=== PATIENT | female | born 2005 | race Caucasian/White ===

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

== ENCOUNTER → 2023-01-02 07:57 | Outpatient (CLI) | payer OTHER, MEDICAID, SELFPAY ==
[2023-01-02 09:27] LABS: Glucose Fasting Gestational 84 mg/dL (76-95)
[2023-01-02 11:14] LABS: Glucose Tol Interp,Gestational INTERPRETATION
[2023-01-02 12:12] LABS: Glucose 3 Hour Gest 89 mg/dL (76-140)
[2023-01-02 12:12] LABS: Glucose 2 Hour Gest 108 mg/dL (76-155)
[2023-01-02 12:20] LABS: Glucose 1 Hour Gest 131 mg/dL (76-180)
== END ==
PROVIDERS: PCP Family Medicine; Referring Provider Nurse Practitioner Obstetrics & Gynecology; Visit Provider Nurse Practitioner Obstetrics & Gynecology
DX: Z34.90 Encounter for supervision of normal pregnancy, unspecified, unspecified trimester (principal); Z13.1 Encounter for screening for diabetes mellitus; Z3A.28 28 weeks gestation of pregnancy
CPT/HCPCS: 36415; 82951; 82952

== ENCOUNTER 2023-01-29 18:10 | Emergency (ER) | payer OTHER, MEDICAID, SELFPAY ==
[2023-01-29 18:13] VITALS: BP 132/81; PULSE 69; RESP 18; TEMP 37.4; O2SAT 98; BMI 34.2
--- NOTE | 2023-01-29 18:28 | ED.PREGNANCY ---
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 Patient states she woke at about 3:00 a.m. in the morning with pain, she states was milder and then became more intense. Patient states it has been persistent. She took Tylenol at 1:00 p.m. today brought it from it 910 to about a 6 or 7/10. Patient has not had fevers or chills. No chest pain, no shortness of breath, no nausea or vomiting. She states normal bowel movements. No dysuria, urgency or frequency. No vaginal bleeding or discharge. Patient denies any swelling in her lower extremities. No hyperreflexia. She states baby has been moving regularly. She has not been noticing a lot of cramping or lower abdominal discomfort. Patient states no prior surgeries. She does have a cyst near her pituitary she established with Dr. Adilia ndiaye at [facility] and had MR eye 2 months ago which showed it was slightly decreased in size. She is on vitamins no other daily medications. No tobacco, alcohol or illicit. Her care is with local colon therapist group. Related Data Previous Rx's Medication Instructions Recorded cephalexin 500 mg capsule 500 mg PO Q6H 7 days #28 caps 01/29/23 Allergies Allergy/AdvReac Type Severity Reaction Status Date / Time No Known Drug Allergies Allergy Verified 01/29/23 18:13 Review of Systems Review of Systems ROS Unobtainable: All systems reviewed & are unremarkable except as noted in HPI and below Exam Narrative Exam Narrative: GENERAL: Alert and oriented x three, female in mild distress. HEENT: Head normocephalic, atraumatic, EOMI, pupils reactive, face symmetric, moist mucous membranes NECK: Supple, full range of motion CARDIOVASCULAR: Regular rate and rhythm without murmurs, rubs or gallops. RESPIRATORY: Breath sounds equal bilaterally, no wheezes rales or rhonchi. ABDOMEN: Soft, nontender. Normoactive bowel sounds all 4 quadrants. No guarding or rebound, rigidity, no mass. Gravid size consistent with dates. : No CVA tenderness EXTREMITIES: Normal range of motion, no clubbing or edema. Neurovascularly intact NEUROLOGICAL: Cranial nerves II through XII grossly intact. Moving all extremities, 2/4 DTRs bilateral lower extremities. No clonus. SKIN: Warm, dry, no petechiae, no rashes or lesions. Initial Vital Signs Initial Vital Signs: Vital Signs Temperature 99.3 F 01/29/23 18:13 Pulse Rate 69 01/29/23 18:13 Respiratory Rate 18 01/29/23 18:13 Blood Pressure 132/81 01/29/23 18:13 Pulse Oximetry 98 01/29/23 18:13 Oxygen Delivery Method Room Air 01/29/23 18:13 Course Orders Ordered: ED Orders 01/29/23 18:22 EKG-12 Lead Stat 01/29/23 18:30 Urine Culture Stat Urine Microscopic Stat 01/29/23 18:42 US OB >= 14 weeks Fetus Stat US abdomen limited Stat 01/29/23 18:45 Complete Blood Count AUTO DIFF Stat Comprehensive Metabolic Panel Stat Lipase Stat PTT Partial Thromboplastin [place] Stat Prothrombin Time INR Stat Discontinued Medications Cefazolin Sodium (Cephalexin 250 Mg Cap Prepack) 1 bottle MISC SEEINSTR ONE Stop: 01/29/23 20:52 Last Admin: 01/29/23 20:59 Dose: 2 tab Documented By: GRANT Sodium Chloride (Normal Saline 0.9%) 1,000 mls @ 1,000 mls/hr IV BOLUS ONE Stop: 01/29/23 19:41 Last Infusion: 01/29/23 19:50 Dose: 0 mls/hr Documented By: Admin: 01/29/23 18:48 Dose: 1,000 mls/hr Documented By: DOMINGA Ondansetron HCl (Ondansetron 4 Mg Odt) 4 mg PO NOW PRN PRN Reason: Nausea And Vomiting Ondansetron HCl (Ondansetron 4 Mg/2 Ml Inj) 4 mg IV NOW PRN PRN Reason: Nausea And Vomiting Vital Signs Vital signs: Vital Signs - 8 hr 01/29/23 18:13 01/29/23 20:55 Temperature 99.3 F Pulse Rate 69 76 Respiratory Rate 18 Blood Pressure 132/81 121/71 Pulse Oximetry 98 99 Oxygen Delivery Method Room Air Room Air MDM - OB/Uterine Contractions Lab Data 01/29/23 18:45 01/29/23 18:45 Labs: Lab Results 01/29/23 01/29/23 01/29/23 Range/Units 18:30 18:45 18:45 WBC 10.7 (4.5-11.0) X10^3/uL RBC 4.35 (4.0-5.2) X10^6/uL Hgb 12.0 (12.0-16.0) g/dL Hct 35.7 L (36-46) % MCV 81.9 (80-100) fL MCH 27.6 (26-34) PG MCHC 33.7 (30-36) % RDW 13.7 (11.6-14.8) % Plt Count 244 (150-400) X10^3/uL Neut % (Auto) 72.7 (50-75) % Lymph % (Auto) 15.7 L (25-40) % [place] % (Auto) 9.7 (3-14) % Eos % (Auto) 1.7 L (2-4) % Baso % (Auto) 0.2 (0-2) % Neut # (Auto) 7800 H (0497-4342) /uL Lymph # (Auto) 1700 (6181-1635) /uL [place] # (Auto) 1000 H (0-900) /uL Eos # (Auto) 200 (0-450) /uL Baso # (Auto) 0 (0-100) /uL PT 11.2 (10.1-12.7) SECONDS INR 1.0 (0.9-1.3) APTT 24 L (26-36) SECONDS Sodium (137-145) mmol/L Potassium (3.4-5.1) mmol/L Chloride (98-107) mmol/L Carbon Dioxide (22-32) mmol/L BUN (7-17) mg/dL Creatinine (0.52-1.04) mg/dL Estimated GFR (>60) mL/min BUN/Creatinine Ratio (6-22) Glucose (70-100) mg/dL Calcium (8.4-10.2) mg/dL Total Bilirubin (0.2-1.3) mg/dL AST (14-36) IU/L ALT (<35) IU/L Alkaline Phosphatase (38-126) U/L Total Protein (6.3-8.2) g/dL Albumin (3.5-5.0) g/dL Globulin (1.7-4.1) g/dL Albumin/Globulin Ratio (1.0-2.8) Lipase (23-300) U/L Urine RBC 0-1/hpf (0-5/HPF) Urine WBC 5-10/hpf H (0-5/HPF) Ur Squamous Epith Cells 5-10 /hpf H (0-5/HPF) Urine Bacteria Few (2-10) H (None) Ur Culture Indicated? Specimen cultured 01/29/23 Range/Units 18:45 WBC (4.5-11.0) X10^3/uL RBC (4.0-5.2) X10^6/uL Hgb (12.0-16.0) g/dL Hct (36-46) % MCV (80-100) fL MCH (26-34) PG MCHC (30-36) % RDW (11.6-14.8) % Plt Count (150-400) X10^3/uL Neut % (Auto) (50-75) % Lymph % (Auto) (25-40) % [place] % (Auto) (3-14) % Eos % (Auto) (2-4) % Baso % (Auto) (0-2) % Neut # (Auto) (1897-5901) /uL Lymph # (Auto) (8960-5818) /uL [place] # (Auto) (0-900) /uL Eos # (Auto) (0-450) /uL Baso # (Auto) (0-100) /uL PT (10.1-12.7) SECONDS INR (0.9-1.3) APTT (26-36) SECONDS Sodium 135 L (137-145) mmol/L Potassium 4.1 (3.4-5.1) mmol/L Chloride 107 (98-107) mmol/L Carbon Dioxide 18 L (22-32) mmol/L BUN 8 (7-17) mg/dL Creatinine 0.39 L (0.52-1.04) mg/dL Estimated GFR > 60 (>60) mL/min BUN/Creatinine Ratio 20.5 (6-22) Glucose 112 H (70-100) mg/dL Calcium 9.3 (8.4-10.2) mg/dL Total Bilirubin 0.1 L (0.2-1.3) mg/dL AST 20 (14-36) IU/L ALT 15 (<35) IU/L Alkaline Phosphatase 106 (38-126) U/L Total Protein 6.8 (6.3-8.2) g/dL Albumin 3.3 L (3.5-5.0) g/dL Globulin 3.5 (1.7-4.1) g/dL Albumin/Globulin Ratio 0.9 L (1.0-2.8) Lipase 163 (23-300) U/L Urine RBC (0-5/HPF) Urine WBC (0-5/HPF) Ur Squamous Epith Cells (0-5/HPF) Urine Bacteria (None) Ur Culture Indicated? Urine Dip Bedside Urine Glucose Negative Bedside Urine Bilirubin - Negative Bedside Urine Ketone - Negative Urine Specific [place] 1.015 Bedside Urine Occult Blood - Negative Bedside Urine pH 6.0 Bedside Urine Protein - Negative Bedside Urine Urobilinogen - Negative Bedside Urine Nitrite - Negative Bedside Urine Leukocytes + 70 Esterase Imaging Data US - OB: Radiologist's Impression: [address] [address] Ultrasound Report Signed Patient: Milagro Jackson MR#: [id number] : 2005 Acct:[id number] Age/Sex: 17 / F Date of Service: 01/29/23 Loc: ED Accession Number: [id number] ?? Procedure: US OB >= 14 weeks Fetus Ordering Provider: Mleissa Zuñiga D.O. PROCEDURE:? US OB >= 14 WEEKS FETUS ? INDICATIONS:? abd pain,ruq ? OUTSIDE/PRIOR DATING DATA:? Last menstrual period (LMP):? 06/11/2022 LMP-based estimated date of delivery (JOSE):? 03/18/2023 First dating scan (date and location):? 11/05/2022 Estimated date of delivery (JOSE) from first dating scan:? 03/19/2023 The calculations are made using the working JOSE of 03/18/2023 ? TECHNIQUE:? Real-time scanning was performed of the fetus, with image documentation.? Endovaginal scanning:? Not performed. ? COMPARISON:? Located Within [facility], US, US OB >= 14 WEEKS FETUS, 11/05/2022, 9:02. ? FINDINGS:? ? General:? A single living intrauterine gestation is present.? Presentation:? Vertex Placenta:? Placental position is anterior, without previa.? Amniotic fluid index:? 12.1 cm, normal range is 5-24 cm.? Single deepest vertical pocket is 5.0 cm. heart rate:? 155 beats per minute.? Maternal cervical canal:? Not well visualized due to head positioning.? Clinically estimated gestational age:? 33 weeks 1 day ? Miscellaneous:? No source of pelvic pain identified. IMPRESSION:? 1. Single live intrauterine . 2. Amniotic fluid index is normal at 12.1 cm. 3. No source of pelvic pain identified.? ? We strive to produce accurate, complete, and clear reports of imaging services. To assist us in improving patient care, this report was composed using standard report templates and voice recognition software. Therefore, it may contain abnormal punctuation, insertions and/or omissions. Occasional wrong-word or sound-alike substitutions may occur. Though we review the report and make efforts to correct it, we do recommend that the report be read carefully in proper context to recognize any text inaccuracies. ? Approved by: Danish Guy M.D. on 01/29/2023 at 20:24? US - abdomen: Radiologist's Impression: [place] [address] Ultrasound Report Signed Patient: Milagro Jackson MR#: [id number] : 2005 Acct:[id number] Age/Sex: 17 / F Date of Service: 01/29/23 Loc: ED Accession Number: [id number] ?? Procedure: US abdomen limited Ordering Provider: Melissa Zuñiga D.O. PROCEDURE: US ABDOMEN LIMITED ? INDICATIONS:? ruq pain ? TECHNIQUE:? Real-time focused scanning was performed of the abdomen, with image documentation.? ? COMPARISON:? None. ? FINDINGS:? Liver liver is normal in size a 16.7 cm and demonstrates normal echogenicity. ? Gallbladder is contracted, most likely secondary to the timing of the most recent meal.? No definite gallstones or pericholecystic fluid. ? No intrahepatic or extrahepatic biliary ductal dilatation.? Common bile duct measures 2 mm in diameter. ? Visualized portions of the pancreas are unremarkable. ? Moderate to severe right-sided hydronephrosis is seen.? There is mild left hydronephrosis.? Bilateral ureteral jets are present. ? IMPRESSION:? 1. Moderate to severe right hydronephrosis and mild left hydronephrosis. 2. Gallbladder is contracted but otherwise unremarkable. ? ? ? Approved by: Danish Guy M.D. on 01/29/2023 at 20:21? ECG Data Attestation: I personally reviewed and interpreted this ECG as follows: Prior ECG tracings: not available for review Interpretation: Sinus rhythm rate of 98 OR 152 QRS 76 QTC 423. No acute ST changes. No prior. MDM Narrative Medical decision making narrative: This is a 17-year-old at approximately 33 weeks female with complaint of right upper quadrant pain that started abruptly this morning she is blood pressure is 132/81, she is not significantly tender on exam she would Tylenol earlier which was helpful. She has not had any vaginal bleeding, discharge or fluid leakage. Patient's blood pressure maximum was 130 she is 120s on recheck. Examination is not consistent with eclampsia or preeclampsia. CBC, coags, CMP shows CO2 18 sodium 135 normal renal function LFTs are appropriate. Patient's urine shows some white cells, squamous epithelial with few bacteria. Negative for proteinuria primary positive for leukocyte esterase. Patient has not had any UTI symptoms, ultrasound shows no acute change on ultrasound, no abruption or placenta change in size appropriate in patient's does have some right hydro no obvious obstruction but with patient's this could be causing some of her symptoms she is more uncomfortable in the front than the posterior but started on antibiotics for potential UTI/pyelo although patient is nontender on my examination on the flank. Gallbladder was contracted but did not show clear signs of infection. Patient was comfortable with this plan and was seen by [facility] for [place] [facility] in department. NST was performed by their L&D and reviewed by colon therapist. Discharge Plan Departure Patient Disposition: Home Clinical Impression: Hydronephrosis of right kidney, UTI (urinary tract infection), Activity Restrictions/Additional Instructions: Your imaging shows some hydronephrosis or enlargement of the right kidney this can sometimes be caused by pressure from the uterus on the ureters. Your urine shows a possible bladder infection, you have been prescribed an antibiotic to take until it is completed. Cultures currently pending and will take 48 hours to result. You may take Tylenol up to a 1000 mg every 6 hours as needed for pain. Take antibiotics until completed. Prescription sent to Please return for fevers, rapidly worsening pain, vomiting, new abdominal back or flank pain, lightheadedness or passing out, new swelling in your extremities, difficulty with urination, vaginal bleeding or discharge, black or bloody stools or other new or concerning changes. Prescriptions: New cephalexin 500 mg capsule 500 mg PO Q6H 7 Days Qty: 28 0RF Referrals: Shiv Baldwin DO [Primary Care Provider] - Stand Alone Forms: Patient Portal/API
--- NOTE | 2023-01-29 18:42 | DI.US.S_ITS ---
PROCEDURE: US OB >= 14 WEEKS FETUS INDICATIONS: abd pain,ruq OUTSIDE/PRIOR DATING DATA: Last menstrual period (LMP): 06/11/2022 LMP-based estimated date of delivery (JOSE): 03/18/2023 First dating scan (date and location): 11/05/2022 Estimated date of delivery (JOSE) from first dating scan: 03/19/2023 The calculations are made using the working JOSE of 03/18/2023 TECHNIQUE: Real-time scanning was performed of the fetus, with image documentation. Endovaginal scanning: Not performed. COMPARISON: [facility], OB >= 14 WEEKS FETUS, 11/05/2022, 9:02. FINDINGS: General: A single living intrauterine gestation is present. Presentation: Vertex Placenta: Placental position is anterior, without previa. Amniotic fluid index: 12.1 cm, normal range is 5-24 cm. Single deepest vertical pocket is 5.0 cm. heart rate: 155 beats per minute. Maternal cervical canal: Not well visualized due to head positioning. Clinically estimated gestational age: 33 weeks 1 day Miscellaneous: No source of pelvic pain identified. IMPRESSION: 1. Single live intrauterine . 2. Amniotic fluid index is normal at 12.1 cm. 3. No source of pelvic pain identified. We strive to produce accurate, complete, and clear reports of imaging services. To assist us in improving patient care, this report was composed using standard report templates and voice recognition software. Therefore, it may contain abnormal punctuation, insertions and/or omissions. Occasional wrong-word or sound-alike substitutions may occur. Though we review the report and make efforts to correct it, we do recommend that the report be read carefully in proper context to recognize any text inaccuracies. Approved by: Danish Guy M.D. on 01/29/2023 at 20:24
--- NOTE | 2023-01-29 18:42 | DI.US.S_ITS ---
PROCEDURE: US ABDOMEN LIMITED INDICATIONS: ruq pain TECHNIQUE: Real-time focused scanning was performed of the abdomen, with image documentation. COMPARISON: None. FINDINGS: Liver liver is normal in size a 16.7 cm and demonstrates normal echogenicity. Gallbladder is contracted, most likely secondary to the timing of the most recent meal. No definite gallstones or pericholecystic fluid. No intrahepatic or extrahepatic biliary ductal dilatation. Common bile duct measures 2 mm in diameter. Visualized portions of the pancreas are unremarkable. Moderate to severe right-sided hydronephrosis is seen. There is mild left hydronephrosis. Bilateral ureteral jets are present. IMPRESSION: 1. Moderate to severe right hydronephrosis and mild left hydronephrosis. 2. Gallbladder is contracted but otherwise unremarkable. Approved by: Danish Guy M.D. on 01/29/2023 at 20:21
[2023-01-29] MEDS: SODIUM CHLORIDE 0.9% 1,000 ML 1000 ML IV (18:48)
[2023-01-29 19:01] LABS: Add Manual Diff / Slide Review NO; Basophils Absolute Auto 0 /uL (0-100); Basophils Percent Auto 0.2 % (0-2); Eosinophils Absolute Auto 200 /uL (0-450); Eosinophils Percent Auto 1.7 % (2-4); Hematocrit 35.7 % (36-46); Lymphocytes Absolute Auto 1700 /uL (1100-4500); Lymphocytes Percent Auto 15.7 % (25-40); Mean Corpuscular HGB Conc 33.7 % (30-36); Mean Corpuscular Hemoglobin 27.6 PG (26-34); Mean Corpuscular Volume 81.9 fL (80-100); Monocytes Absolute Auto 1000 /uL (0-900); Monocytes Percent Auto 9.7 % (3-14); Neutrophils Absolute Auto 7800 /uL (1500-7000); Neutrophils Percent Auto 72.7 % (50-75); Platelet Count 244 X10^3/uL (150-400); Red Blood Cell Count 4.35 X10^6/uL (4.0-5.2); Red Cell Distribution Width 13.7 % (11.6-14.8); White Blood Cell Count 10.7 X10^3/uL (4.5-11.0)
[2023-01-29 19:04] LABS: Prothrombin Time 11.2 SECONDS (10.1-12.7)
[2023-01-29 19:06] LABS: PTT Partial Thromboplastin Tim 24 SECONDS (26-36)
[2023-01-29 19:10] LABS: Alanine Aminotransferase 15 IU/L (<35); Albumin 3.3 g/dL (3.5-5.0); Albumin Globulin Ratio 0.9 (1.0-2.8); Alkaline Phosphatase 106 U/L (38-126); Aspartate Aminotransferase 20 IU/L (14-36); BUN Creatinine Ratio 20.5 (6-22); Bilirubin Total 0.1 mg/dL (0.2-1.3); Blood Urea Nitrogen 8 mg/dL (7-17); Calcium 9.3 mg/dL (8.4-10.2); Carbon Dioxide 18 mmol/L (22-32); Chloride 107 mmol/L (98-107); Estimated Glomerular Filt Rate > 60 mL/min (>60); Globulin 3.5 g/dL (1.7-4.1); Glucose 112 mg/dL (70-100); HEMOLYSIS < 15 (0-50); Lipase 163 U/L (23-300); Potassium 4.1 mmol/L (3.4-5.1); Sodium 135 mmol/L (137-145); Total Protein 6.8 g/dL (6.3-8.2)
[2023-01-29 19:13] LABS: RBC Urine 0-1/HPF (0-5/HPF)
[2023-01-29 19:14] LABS: Bacteria Urine Few (2-10); Culture Indicated Urine Specimen Cultured; Squamous Epithelial Cell Urine 5-10 /HPF (0-5/HPF); WBC Urine 5-10/HPF (0-5/HPF)
[2023-01-29 20:55] VITALS: BP 121/71; PULSE 76; O2SAT 99
[2023-01-29] MEDS: cephALEXin 250 MG CAP PREPACK 1 BOTTLE MISC (20:59)
--- NOTE | 2023-01-30 12:21 | PM.PROC.1 ---
Procedures Date/Time Date of procedure: 01/29/23 Time of procedure: 17:00 General Procedure description: CNM in L&D awaiting patient for evaluation. Patient was checked into ER and is undergoing evaluation. CNM notified ER physician that patient is 33wks and ER physician felt comfortable evaluating and treating patient for her RUQ pain in the context of normotensive BP. CNM ordered and reviewed NST which was reactive.
== END 2023-01-29 20:55 | disposition home or self-care (01) ==
PROVIDERS: Emergency Provider Emergency Medicine; PCP Family Medicine
DX: O23.43 Unspecified infection of urinary tract in pregnancy, third trimester (principal); O99.891 Other specified diseases and conditions complicating pregnancy; N13.30 Unspecified hydronephrosis; Z3A.33 33 weeks gestation of pregnancy
CPT/HCPCS: 36415; 76705; 76811; 80053; 81003; 81015; 83690; 85025; 85610; 85730; 87086; 93005; 93010; 99284

== ENCOUNTER → 2023-02-11 06:48 | Outpatient (CLI) | payer OTHER, MEDICAID, SELFPAY ==
--- NOTE | 2023-02-11 06:49 | DI.US.S_ITS ---
PROCEDURE: US OB FOLLOW UP INDICATIONS: GROWTH AND TIFFANY OUTSIDE/PRIOR DATING DATA: Last menstrual period (LMP): 06/11/2022. LMP-based estimated date of delivery (JOSE): 03/18/2023. First dating scan (date and location): 11/05/2022. Estimated date of delivery (JOSE) from first dating scan: 03/19/2023. The calculations are made using the clinical JOSE of 03/18/2023. TECHNIQUE: Real-time scanning was performed of the fetus, with image documentation. COMPARISON: [facility], , OB >= 14 WEEKS FETUS, 01/29/2023, 19:12. FINDINGS: A single living intrauterine gestation is present. Presentation: Vertex. Placenta: Placental position is anterior, without previa. Amniotic fluid index: 10.8 cm, normal range is 5-24 cm. Single deepest vertical pocket is 4.5 cm. heart rate: 145 beats per minute. Maternal cervical canal: Not well seen. Biometric measurements: BPD: 8.8 cm, 35 weeks 5 days, 71st percentile HC: 33.3 cm, 38 weeks 0 days, 87th percentile AC: 32.1 cm, 36 weeks 0 days, 83rd percentile FL: 7.1 cm, 36 weeks 3 days, 78th percentile Clinically estimated gestational age: 35 weeks 0 days Estimated gestational age from today's scan: 36 weeks 4 days Estimated weight: 2897 g, 82 percentile No gross abnormality. IMPRESSION: 1. [place] living intrauterine at 36 weeks 4 days based on today's ultrasound. Fetus is in the 82 percentile for weight. 2. Normal placenta and amniotic fluid. Dictated by: Alistair Boggs M.D. on 02/11/2023 at 8:56 Approved by: Alistair Boggs M.D. on 02/11/2023 at 9:04
== END ==
PROVIDERS: PCP Family Medicine; Referring Provider Advanced Practice Midwife; Visit Provider Advanced Practice Midwife
DX: O26.843 Uterine size-date discrepancy, third trimester (principal); Z3A.36 36 weeks gestation of pregnancy
CPT/HCPCS: 76816

== ENCOUNTER 2023-03-21 00:42 | Inpatient (IN) | payer OTHER, MEDICAID, SELFPAY ==
[2023-03-21] VITALS (7 sets, daily range): BP systolic 134–144; BP diastolic 70–86; PULSE 115–128; RESP 18–21; TEMP 36.2–36.5; O2SAT 98–99
--- NOTE | 2023-03-21 01:12 | PM.OBHP.1 ---
OB HPI Date/Time Date of admission: 03/21/23 Date Patient Seen: 03/21/23 Time Patient Seen: 01:12 History of Present Condition Chief complaint: OB CHeck : 1 Para: 0 Estimated Date of Delivery: 03/18/23 Estimated Gestational Age (weeks): 40.3 Narrative: Milagro Toledo is a 17 year old female @ 40wks 3 days by LMP and 11 wk US who presents for evaluation of labor. Contractions started midday and have steadily progressed in frequency and intensity with loss of mucus plug in the afternoon. Coping well, breathing through strong contractions every 2-3 mnutes. +FM. No leaking of fluid. care w/ CNM complicated by stable pituitary ademona (dx at age 12) and excessive weight gain (79lbs) with 36wk growth US EFW in the 82nd%. Planning an epidural. Accompanied by her mother and grandmother. History of Present care: initiated at week # (11), number of visits (12) and pounds weight gain (79) Dating criteria: LMP confirmed by 1st trimester US Ultrasounds: normal mid trimester US Obstetrical complications: none Medical complications: none Preadmission Labs Blood type: A (+) positive -: Antibody screen: negative, GBS status: positive, HBsAG: negative, HIV: negative, HSV 1: positive, HSV 2: positive and RPR/VDLR: negative -: Chlamydia screen: not detected and Gonorrhea screen: not detected -: Rubella: not immune and Varicella: not immune HCT: 35.2 Cell-free DNA: Negative 1 hr GTT: 149 3 hr GTT: 1 hr (131), 2 hr (108) and 3 hr (89) Fasting blood glucose: 84 Evaluation Evaluation Baseline heart rate: 135 Variability: Moderate (11-25) monitor accelerations: Present Monitor Decelerations: Absent Contraction Frequency (minutes): 2 Uterine Contraction Intensity: Strong/Firm Status: Category l Dilation (cm): 6 Effacement (%): 90 Dilation: >/=5 cm Effacement: >/=80% station: -2 Position of cervix: posterior Consistency: soft Macario score: 9 PFS Medical History (Updated 03/21/23 @ 01:38 by Miracle Nava CNM) HSV (herpes simplex virus) anogenital infection Pituitary adenoma Social History (Updated 03/21/23 @ 01:39 by Miracle Nava CNM) marital status: unmarried,single household members: family lives independently: Yes housing: house education level: high school Smoking Status: Never smoker Meds Home Medications and Allergies Home Medications Medication Instructions Recorded Confirmed Type valacyclovir 500 mg tablet mg 03/21/23 03/21/23 History Allergies Allergy/AdvReac Type Severity Reaction Status Date / Time No Known Drug Allergies Allergy Verified 01/29/23 18:13 Review of Systems Review of Systems ROS: Yes All systems reviewed with the patient and are negative except as otherwise documented OB Exam Vital signs Blood Pressure: 134/84 Pulse Rate: 115 Temperature: 97.2 F Resp Effort & Inspection: normal respiratory effort and able to speak in complete sentences Auscultation: clear to auscultation bilaterally Cardio Rate: regular rate Rhythm: regular rhythm Heart Sounds: S1 normal and S2 normal Presentation: vertex Objective Labs 03/21/23 01:15 Assessment and Plan Assessment and Plan Assessment and Plan narrative: A: Term [place] Active labor GBS prophylaxis indicated Cat I FHR P: Admit, routine orders with ampicillin loading dose now. Epidural when requested. Expectant management of labor. Reassess in 4 hours or sooner, PRN.
[2023-03-21] MEDS: AMPICILLIN 2,000 MG in SODIUM CHLORIDE 0.9% 100 ML 200 MG IV (01:40)
[2023-03-21] MEDS: LACTATED RINGERS 1,000 ML 100 ML IV ×2 (01:54→23:16)
--- NOTE | 2023-03-21 01:59 | PM.AN.REGBLK ---
Regional Block Pre-procedure Procedure: Continuous Lumbar Epidural for L&D Attending OB provider: Miracle Nava PMH/ROS narrative: term labor, SROM, no complications. PMH pituitary adenoma, stable (age approx 12), 80lb weight gain. ASA Class: II Medications: Current Medications Generic Name Dose Route Start Last Admin Trade Name Freq PRN Reason Stop Dose Admin Calcium Carbonate 1,000 mg 03/21/23 01:10 Calcium Carbonate 500 Mg Tab PO Q4HR PRN Dyspepsia Carboprost Tromethamine 250 mcg 03/21/23 01:10 Carboprost 250 Mcg/Ml Ampul IM Q90M PRN Bleeding Fentanyl 100 mcg 03/21/23 01:10 Fentanyl 100 Mcg/2 Ml Inj IV Q1H PRN Pain, Severe (7-10) Oxytocin/Lactated Ringer's 30 unit in 500 mls @ 200 mls/hr 03/21/23 01:10 Oxytocin Premix IV CONT PRN Bleeding Protocol Tranexamic Acid 1,000 mg/ 100 mls @ 200 mls/hr 03/21/23 01:10 Sodium Chloride IV NOW PRN Bleeding Lactated Ringer's 1,000 mls @ 100 mls/hr 03/21/23 01:15 03/21/23 01:54 Lactated Ringers IV 100 mls/hr CONT DESTINI Administration Lidocaine HCl 20 ml 03/21/23 01:10 Lidocaine 1% 20 Ml INJ INTRA-OP PRN Post Delivery Methylergonovine Maleate 0.2 mg 03/21/23 01:10 Methylergonovine 0.2 Mg Tablet PO Q6HR PRN Heavy Bleeding Methylergonovine Maleate 0.2 mg 03/21/23 01:10 Methylergonovine 0.2 Mg/Ml Vial IM NOW PRN Bleeding Misoprostol 800 mcg 03/21/23 01:10 Misoprostol 200 Mcg Tablet MA NOW PRN Bleeding Misoprostol 400 mcg 03/21/23 01:10 Misoprostol 200 Mcg Tablet SL NOW PRN Bleeding Naloxone HCl 0.2 mg 03/21/23 01:10 Naloxone 0.4 Mg/Ml Vial IV Q2MIN PRN Opiate Reversal Ondansetron HCl 4 mg 03/21/23 01:10 Ondansetron 4 Mg/2 Ml Inj IV Q4HR PRN Nausea And Vomiting Oxytocin 10 unit 03/21/23 01:10 Oxytocin 10 Unit/Ml Vial IM NOW PRN Bleeding Allergies: Allergies Allergy/AdvReac Type Severity Reaction Status Date / Time No Known Drug Allergies Allergy Verified 01/29/23 18:13 Procedure Insertion date: 03/21/23 Insertion time: 20:16 Prep/Local: betadine x3 and 1% lidocaine Interspace: L3-4 Patient position: sitting Needle: 18 gauge Hustead (CSE:27g Pencan through Hustead, clear CSF, 2.5mg MPF bupiv) Loss of resistance with: saline LISANDRO at (cm): 5 Catheter placed at SKIN (cm): 11 Catheter in SPACE (cm): 6 Insertion: No CSF, No Blood, No Paresthesia with insertion, No Paresthesia with injection and No Test dose reaction Initial Medications TEST DOSE time: 02:19 TEST DOSE: 1.5% lidocaine with epinephrine 1:200k (mL): 3 BOLUS DOSE time: 02:25 BOLUS DOSE (mL): 4 BOLUS DOSE med: other (infusate) Infusion INFUSION: 0.125% bupivacaine and with fentanyl 2 mcg/mL Initial rate (mL/hr): 8 Subsequent interventions: PCEA 05/22 0940 5mL clinician bolus, increased rate to 10/5 0955 5mL 2% chloroprocaine 1340 5mL 2% chloroprocaine 14:30 50mcg fentanyl epidural, 5mL bolus infusate 14:40 5mL 2% lidocaine 14:56 5mL 2% lidocaine, improved To CSection 16:08 Post-procedure Anesthesia time START: 02:05 Anesthesia time END: 16:08 Post-procedure Anesthesia Assessment: Yes CV function: HR/BP stable, Yes Resp function: RR/sat/airway adequate, Yes Post-op hydration adequate, Yes Pain control adequate, Yes Nausea & vomiting absent, Yes Temperature > 36 C, Yes Mental status appropriate and No Anesthesia complications
[2023-03-21 02:07] LABS: Add Manual Diff / Slide Review NO; Basophils Absolute Auto 300 /uL (0-100); Basophils Percent Auto 2.8 % (0-2); Eosinophils Absolute Auto 100 /uL (0-450); Eosinophils Percent Auto 1.2 % (2-4); Hematocrit 34.1 % (36-46); Hemoglobin 11.5 g/dL (12.0-16.0); Lymphocytes Absolute Auto 1800 /uL (1100-4500); Lymphocytes Percent Auto 16.8 % (25-40); Mean Corpuscular HGB Conc 33.7 % (30-36); Mean Corpuscular Hemoglobin 26.9 PG (26-34); Mean Corpuscular Volume 79.8 fL (80-100); Monocytes Absolute Auto 900 /uL (0-900); Monocytes Percent Auto 8.6 % (3-14); Neutrophils Absolute Auto 7500 /uL (1500-7000); Neutrophils Percent Auto 70.6 % (50-75); Platelet Count 237 X10^3/uL (150-400); Red Blood Cell Count 4.27 X10^6/uL (4.0-5.2); Red Cell Distribution Width 16.2 % (11.6-14.8); White Blood Cell Count 10.7 X10^3/uL (4.5-11.0)
[2023-03-21] MEDS: FENT 2MCG/ML BUPIV 0.125% EPI 200 MCG/100 ML PLAST..BAG 6 MCG EPIDURAL (02:35)
[2023-03-21] MEDS: AMPICILLIN 1,000 MG in SODIUM CHLORIDE 0.9% 100 ML 200 MG IV ×3 (05:36→13:32)
--- NOTE | 2023-03-21 06:10 | PM.OBPNLAB ---
Date/Time Date Patient Seen: 03/21/23 Time Patient Seen: 06:10 Pain Control Pain control: epidural (has been able to sleep) Comments: Resting comfortably. Denies rectal pressure. VS: BP 99/54mmHg, HR 98bpm, T98.6F Oral Pelvic Exam Dilation (cm): 8 Effacement (%): 100 station: -1 Amniotic membrane status: Bulging Contractions Contractions on admission: regular Monitor mode: External Pitocin rate (mU/min): 0 Contraction frequency (min): 2 Contraction duration (min): 1 Contraction pattern: Regular Contraction intensity: Strong/Firm Status status: Category l Heart Rate Baseline: 130 Monitor Accelerations: Present Monitor Decelerations: Absent Monitor Variability: Moderate Assessment and Plan Assessment: active labor Plan: continuous present management Comments: Continue expectant management of labor. Encouarage frequent position changes. Reassess in 4 hours or JOSAFAT deckerN.
--- NOTE | 2023-03-21 10:50 | PM.OBPNLAB ---
Date/Time Date Patient Seen: 03/21/23 Time Patient Seen: 10:00 Pain Control Pain control: epidural Comments: Was able to sleep, but now having pain in her LLQ and working with anesthesia for relief. VS: 129/78mmHg, HR 108bpm, T 36.3C Temporal Pelvic Exam Dilation (cm): 9 Effacement (%): 100 station: -1 Amniotic membrane status: Bulging Comments: Minimal descent noted since admission OA presentation Contractions Monitor mode: External Contraction frequency (min): 2 Contraction pattern: Regular Contraction intensity: Strong/Firm Status status: Category l Heart Rate Baseline: 125 Monitor Accelerations: Present Monitor Decelerations: Absent Monitor Variability: Moderate Assessment and Plan Assessment: active labor Plan: continuous present management Comments: Notified [facility] OB/ of anticipated LGA . Anticipate second stage soon. Reassess in 4 hours or sooner, PRN.
--- NOTE | 2023-03-21 13:44 | PM.OBPNLAB ---
Date/Time Date Patient Seen: 03/21/23 Time Patient Seen: 13:45 Pain Control Pain control: epidural Comments: Currently coping well with adequate epidural anesthesia, though she is aware of her Argueta catheter and able to feel cervical exams. Pelvic Exam Dilation (cm): 9 Effacement (%): 100 station: -1 Amniotic membrane status: Leaking Comments: Cervix palpated on left and anterior AROM for clear fluid was performed at 1100 Contractions Monitor mode: External Contraction frequency (min): 2 Contraction pattern: Regular Contraction intensity: Moderate Status status: Category l Heart Rate Baseline: 135 Monitor Accelerations: Present Monitor Decelerations: Absent Monitor Variability: Moderate Assessment and Plan Assessment: active labor Plan: continuous present management Comments: Recommend left exaggerated yoo and then peanut ball. Reassess in 2 hours and if no change will place an IUPC and start pitocin, if indicated.
--- NOTE | 2023-03-21 14:55 | PM.OBPNLAB ---
Date/Time Date Patient Seen: 03/21/23 Time Patient Seen: 14:55 Pain Control Pain control: epidural (inadequate) Comments: Working with anesthesia to achieve adequate pain relief. VS: BP 133/75mmHg, HR 104bpm, T 36.3C Temporal Pelvic Exam Dilation (cm): 9 Effacement (%): 100 station: -1 Amniotic membrane status: Leaking Comments: IUPC placed at 1435 Contractions Monitor mode: External Pitocin rate (mU/min): 0 Contraction frequency (min): 2 Contraction pattern: Regular Contraction intensity: Moderate Intrauterine tone measurement: 275 Status status: Category l Heart Rate Baseline: 145 Monitor Accelerations: Present Monitor Decelerations: Absent Monitor Variability: Moderate Assessment and Plan Assessment: active labor and other (Arrest of active phase) Plan: Comments: Consulted [facility]/ for primary cesarea, non-urgent. Notified /Anesthesia. RN to notify OR crew.
--- NOTE | 2023-03-21 15:37 | P.CONS_ITS ---
History of Present Illness Consult details Date Patient Seen: 03/21/23 Time Patient Seen: 15:38 Chief complaint: OB CHeck Reason for consult: Stage 1 arrest of labor Requesting provider: Miracle Nava Narrative: Patient is a 17-year-old 1 para 0 at 40-,3/7 weeks gestation. Consult due to stage I arrest of labor. She presented in active labor and was 6 cm dilated. She progressed over several hours to 9 cm. She has not changed past 9 cm. An intrauterine pressure catheter was placed with [place] units at 275. She has an epidural for pain management. Membranes were ruptured. She has clear amniotic fluid. Group B strep positive. Received 4 doses of antibiotics. Meds Home Medications and Allergies Home Medications Medication Instructions Recorded Confirmed Type valacyclovir 500 mg tablet 500 mg 2XD 03/21/23 03/21/23 History Allergies Allergy/AdvReac Type Severity Reaction Status Date / Time No Known Drug Allergies Allergy Verified 01/29/23 18:13 Exam Narrative Exam Narrative: Generally: Patient lying on her left side, mildly uncomfortable with cont ractions. Fundal height: 42 cm Estimated weight: 9 lb Vaginal exam: 9 cm. Head at -1 station. Evaluation of tracing: Baseline heart rate 140s. Presence of accelerations. No decelerations. Moderate [id number] variability. Contractions every 2-3 minutes. [place] units 275. Objective Labs 03/21/23 01:15 Labs: Laboratory Results - last 24 hr 03/21/23 03/21/23 01:15 01:15 WBC 10.7 RBC 4.27 Hgb 11.5 L Hct 34.1 L MCV 79.8 L MCH 26.9 MCHC 33.7 RDW 16.2 H Plt Count 237 Neut % (Auto) 70.6 Lymph % (Auto) 16.8 L [place] % (Auto) 8.6 Eos % (Auto) 1.2 L Baso % (Auto) 2.8 H Neut # (Auto) 7500 H Lymph # (Auto) 1800 [place] # (Auto) 900 Eos # (Auto) 100 Baso # (Auto) 300 H Blood Type A Positive Antibody Screen Negative [facility] Medical History (Updated 03/21/23 @ 01:38 by Miracle Nava CNM) HSV (herpes simplex virus) anogenital infection Pituitary adenoma Social History marital status: unmarried,single household members: family lives independently: Yes housing: house education level: high school Tobacco & Substance Use Smoking Status: Never smoker Assessment & Plan Assessment & Plan narrative: Assessment: 17-year-old 1 para 0 at 40-,3/7 weeks gestation with a stage I arrest of labor despite adequate contractions with intrauterine pressure catheter Plan: Primary low-transverse section The risks, benefits, and alternatives to the procedure were explained to the patient. The risks including bleeding, infection, injury to the bowel, bladder, or ureters. She understands these risks and agrees to proceed. A full par Q was held and consent form was signed. Time Spent With Patient Time with patient: less than 30 minutes
--- NOTE | 2023-03-21 15:37 | PM.OBPNLAB ---
Date/Time Date Patient Seen: 03/21/23 Time Patient Seen: 15:37 Pelvic Exam Effacement (%): 100 station: -1 Amniotic membrane status: Leaking Contractions Monitor mode: External Contraction frequency (min): 2 Contraction pattern: Regular Contraction intensity: Moderate Intrauterine tone measurement: 275 Status status: Category l
--- NOTE | 2023-03-21 15:56 | PM.PREOP ---
Pre-operative Note COVID-19 Criteria for continued procedure: Non-surgical alternatives not available or appropriate per current SOC Interval Note History & Physical reviewed/Exam performed by Physician: Yes Changes to H&P: No H&P completed within 30 days and has changed as indicated here:: 03/21/23
[2023-03-21] MEDS: CEFAZOLIN 2 GM/100 ML PREMIX 100 ML IV (16:22)
--- NOTE | 2023-03-21 16:37 | SUR.OPER ---
Supine on padded OR bed, head on pillow, arms secured on padded arm boards at <90 degrees abduction, legs uncrossed, safety belt at thigh, tape over blanket over lower legs.
[2023-03-21] MEDS: AZITHROMYCIN 500 MG in DEXTROSE 5% IN WATER 250 ML 250 MG IV (16:53)
[2023-03-21] MEDS: ACETAMINOPHEN IV 1,000 MG/100 ML VIAL 400 MG IV (16:57)
--- NOTE | 2023-03-21 17:30 | P.PCN_ITS ---
Procedures Date/Time Date of procedure: 03/21/23 Time of procedure: 16:41 General Procedure description: Failure Analysis Technician Documentation I assisted the OB market relationship manager in the section for this patient. My responsibilities included retracting and suctioning, providing fundal pressure during delivery and following with suture during closure. Please see the OB's note for details of the surgery.
--- NOTE | 2023-03-21 17:40 | PM.OBCS.1 ---
Operative Date/Time/Diagnoses Date of procedure: 03/21/23 Time of procedure: 17:40 Pre-op diagnosis: 40-3/7 weeks gestation Stage I arrest of labor Post-op diagnosis: same Procedure & Clinicians Procedure: Primary low-transverse section Same procedure as scheduled: Yes Indications: 40-,3/7 weeks gestation Stage I arrest of labor Surgeon: Nichole Lundberg Yes if Unassisted: No Forging Dies Final Finisher: Miracle Nava Reason for Forging Dies Final Finisher: The anesthetic assistant was necessary to retract upon entry into the abdomen and uterus. She assisted with delivery of the with fundal pressure. She assisted with closure of the uterus and abdomen with retraction and clipping of suture. Anesthesia Type: Spinal (with Duramorph) Operative Notes Findings: Live female infant in the left occiput posterior presentation Normal uterus, tubes, and ovaries Cord pH arterial: 6.975 Cord pH venous: 7.042 Closure Type: primary Specimen(s): cord blood, cord pH and placenta Intraoperative meds administered: Duramorph, Ketorolac and Pitocin Applied: Catheter (To continuous drainage) Estimated Blood Loss (mL): 600 Blood products transfused: none Procedure in detail: The patient was taken to the operating room where she was placed in the seated position. Spinal anesthesia with Duramorph was administered. She was then placed in the dorsal supine position with a leftward tilt. She was prepped and draped in the usual sterile fashion. A timeout was performed. After spinal analgesia was found to be adequate, a Pfannenstiel skin incision was made 2 fingerbreadths above the pubic symphysis and carried through to the underlying layer fascia. The fascia was nicked in the midline, and the incision extended bilaterally with the Warren scissors. The superior aspect of the fascial incision was grasped with a [place] clamps, elevated, and the underlying rectus muscles dissected off sharply and bluntly. Attention was then turned to the inferior aspect of this incision which in a similar fashion was grasped with a [place] clamps, elevated, and the underlying rectus muscles dissected off sharply and bluntly. The rectus muscles were in the midline. The peritoneum was identified, grasped between 2 hemostats, and entered sharply with the Metzenbaum scissors. This incision was extended superiorly and inferiorly with good visualization of the bladder. The bladder blade was inserted. The vesicouterine peritoneum was identified, grasped with the pickup, and entered sharply with the Metzenbaum scissors. This incision was extended bilaterally, and the bladder flap was created digitally. The bladder blade was reinserted. The lower uterine segment was incised in a transverse fashion with the scalpel. Upon entering the amniotic sac there was a small amount of clear amniotic fluid. The nose and mouth were suctioned with bulb suction. The remainder of the body delivered without difficulty. The cord was double clamped and cut. The was handed off to waiting RN and RT. a piece of cord for cord pH was obtained. Cord bloods were obtained. Pitocin was given in the IV fluids. The placenta was delivered manually. The uterus was cleared of all clots and debris. The uterine incision was repaired with #1 chromic in a running interlocking fashion, and a second layer the same suture was used for an imbricating layer. Hemostasis was achieved. The tubes and ovaries were examined and were found to be normal. The gutters were cleared of all clots and debris. The bladder flap was reapproximated using 2-0 Vicryl in a running fashion. The parietal peritoneum was closed using 2-0 Vicryl in a running fashion. The fascia was reapproximated using 0 Vicryl in a running fashion. The subcutaneous layer was copiously irrigated with warm normal saline. 5 simple interrupted sutures of 3-0 Vicryl were placed to reapproximate the subcutaneous layer. The skin was closed with 4-0 Monocryl in a subcuticular fashion. Steri-Strips were placed. An Aquacel dressing was placed. The uterus was expressed of a small amount of old blood. Sponge, lap, and instrument counts were correct x-2. The patient tolerated the procedure well, and was taken to PACU in stable condition. Complications: none Baby 1: Infant Gender: Female Position: Left Occiput Posterior Placental Delivery Description: Manual Removal Cord Vessel Description: 3 Vessels score (1 min): 7 score (5 min): 7 weight: 8 lb 12 oz Post-operative Condition: stable Disposition: PACU Aftercare: routine postop
[2023-03-21] MEDS: OXYCODONE IR 5 MG TABLET PO (17:46)
--- NOTE | 2023-03-21 17:46 | SUR.PHASEI ---
verbal order Dr. Dougherty 10 mg oxycodone hcl PO
[2023-03-21] MEDS: ACETAMINOPHEN 325 MG TABLET 650 MG PO (21:38)
[2023-03-21] MEDS: OXYCODONE IR 10 MG TABLET PO (22:13)
[2023-03-21] MEDS: KETOROLAC 30 MG/ML VIAL IV (23:12)
[2023-03-22] MEDS: ACETAMINOPHEN 325 MG TABLET 650 MG PO ×4 (02:51→20:36)
[2023-03-22] MEDS: KETOROLAC 30 MG/ML VIAL IV ×2 (05:15→12:35)
[2023-03-22 06:55] LABS: Hematocrit 25.7 % (36-46); Hemoglobin 8.6 g/dL (12.0-16.0)
[2023-03-22] MEDS: PRENATAL VIT,CALC/IRON/FOLIC 1 TABLET 1 TAB PO (09:55)
[2023-03-22] MEDS: DOCUSATE 100 MG CAPSULE PO (09:56)
--- NOTE | 2023-03-22 17:16 | PM.OBPN.1 ---
Subjective - OB Subjective Patient comments: no complaints, pain well controlled and tolerating diet baby status: doing well feeding status: exclusively breast feeding Date Patient Seen: 03/22/23 Time Patient Seen: 17:16 Interval history: Postop day # 1 status post primary low-transverse section Argueta catheter is out she is voiding without the catheter. Pain is well controlled with ibuprofen and Tylenol. She is tolerating a diet. She is ambulating independently. is going okay. Exam Vital Signs (past 8 hours): Oxygen Delivery Method Room Air Narrative Exam Narrative: Generally: Patient is sitting up in bed, eating, no acute distress Fundus: Firm at U -1 Incision: Clean dry and intact with Aquacel dressing Extremities: 1+ edema, negative Homans Objective Labs 03/22/23 06:33 Labs: Laboratory Results - last 24 hr 03/22/23 06:33 Hgb 8.6 L Hct 25.7 L Assessment & Plan Plan day: 1 plan OB: routine postop care Comments: Anticipate discharge March 23, 2023 Time Spent With Patient Time: Total time spent is greater than 50% in coordination of care (as documented) at patient's floor/unit and/or counseling patient: Time with patient: less than 15 minutes
[2023-03-22] MEDS: IBUPROFEN 600 MG TABLET PO (20:36)
[2023-03-22] MEDS: OXYCODONE IR 10 MG TABLET PO (20:57)
[2023-03-23] MEDS: ACETAMINOPHEN 325 MG TABLET 650 MG PO ×2 (04:43→11:17)
[2023-03-23] MEDS: IBUPROFEN 600 MG TABLET PO ×2 (04:44→11:16)
[2023-03-23] MEDS: OXYCODONE IR 10 MG TABLET PO (05:51)
[2023-03-23] MEDS: PRENATAL VIT,CALC/IRON/FOLIC 1 TABLET 1 TAB PO (09:28)
[2023-03-23] MEDS: DOCUSATE 100 MG CAPSULE PO (09:28)
--- NOTE | 2023-03-30 20:26 | PM.OBDS.1 ---
Discharge Providers Provider Date of admission: 03/21/23 00:42 Discharge Date: 03/23/23 Primary care physician: Shiv Nolan Rai, DO Consults: 03/21/23 21:28 Consult to Manufacturing Technology Analyst Routine Comment: Discharge provider: Nichole Dougherty MD Summary Hospital Course Date Patient Seen: 03/23/23 Time Patient Seen: 09:30 Diagnoses: 40-3/7 weeks gestation Stage I arrest of labor Primary low-transverse section Hospital Course: Patient is a 18-year-old 1 para 1 who presented on March 21, 2023 at 40-,3/7 weeks gestation in labor. She progressed to 9 cm, but then no change past 9 cm for 6 hours. Adequacy of contractions was assessed with intrauterine pressure catheter. She underwent a primary low-transverse section for a stage I arrest of labor. Her postoperative course was unremarkable. She was discharged home on postop day # 2, March 23, 2023. She was tolerating a diet. No nausea or vomiting. Bleeding was minimal. She was ambulating independently. She was voiding without the catheter. And her pain was well controlled. Peripartum Data Infant Delivery Method: Section Procedures: Epidural analgesia Intrauterine pressure catheter Primary low-transverse section complications: none 1: Gender: Female Disposition of : home Status at Discharge Cognitive/behavioral status at discharge: oriented Functional status at discharge: independent ambulation Overall status at discharge: patient is progressing back to baseline Time Spent with Patient Time attestation: Total time spent providing and/or coordinating discharge services: Time spent: Less than 30 minutes Objective Labs 03/22/23 06:33 Exam Vital Signs (past 8 hours): Oxygen Delivery Method Room Air Narrative Exam Narrative: Generally: Patient is sitting up in bed, no acute distress Lungs: Clear to auscultation bilaterally Cardiovascular: Regular rate and rhythm Fundus: Firm at U -1 Incision: Clean dry and intact with Aquacel dressing Extremities: 1+ edema, negative Homans Discharge Plan Discharge Plan Patient Disposition: Home Provider Discharge Comment: Call with fever, chills, or redness or drainage around the incision Call with bleeding more than a pad in an hour Ibuprofen 600 mg every 6 hours as needed for pain Tylenol 650 mg every 6 hours as needed for pain Oxycodone every 4 hours as needed Stool softener until bowel has returned to normal Discharge orders & Medications Prescriptions: New oxycodone 5 mg tablet 5 mg PO Q4H PRN (Reason: pain) Qty: 20 0RF ibuprofen 600 mg tablet 600 mg PO QID PRN (Reason: cramping) Qty: 30 0RF docusate sodium [Colace] 100 mg capsule 100 mg PO DAILY Qty: 20 0RF Discontinued valacyclovir 500 mg tablet 500 mg 2XD Patient Comments: take 1 tablet by mouth twice a day for DURATION OF Follow up/Referrals: Deanna Rose, HEBER, TITLE SEARCHER [Advanced Cable Puller] - 03/28/23 9:30 am (Follow-up with pneumatic tester on March 28, 2023 for Aquacel dressing and stitch removal) Diet/Activity/Treatments Diet: Regular Activity: No heavy lifting, nothing more than the baby for the first 2 weeks Skin/Wound/Dressing Care Report to your healthcare provider any signs of infection, such as:: chills, fever, increased pain, unusual drainage and unusual redness Dressing: Do not remove dressing Visit Report/Discharge Packet Instructions: DI for , DI for Prescription Opioid Use Stand Alone Forms: Patient Portal/API, Stroke Signs & Symptoms Discharge Data Primary Care Provider: Shiv Baldwin Discharges patient from system. Discharge Date/Time: 03/23/23 17:35
== END 2023-03-23 17:35 | disposition home or self-care (01) | DRG 540 ==
PROVIDERS: Nurse Practitioner Obstetrics & Gynecology; Obstetrics & Gynecology; Admitting Provider Advanced Practice Midwife; PCP Family Medicine; Referring Provider Advanced Practice Midwife; Visit Provider Advanced Practice Midwife
PROC: 10D00Z1 Extraction of Products of Conception, Low, Open Approach (ICD-10-PCS; CPT 59514; principal; 2023-03-21 16:15)
DX: O62.1 Secondary uterine inertia (principal); Z3A.40 40 weeks gestation of pregnancy; Z37.0 Single live birth; O99.824 Streptococcus B carrier state complicating childbirth; O98.52 Other viral diseases complicating childbirth; B00.9 Herpesviral infection, unspecified; O99.892 Other specified diseases and conditions complicating childbirth
CPT/HCPCS: 36415; 59514; 85014; 85018; 85025; 86850; 86900; 86901; 99232; G0379; J0131; J0290; J0690; J1885; J2250; J2274; J2590; J2704; J3010

== ENCOUNTER 2023-08-15 14:46 | Emergency (ER) | payer OTHER, MEDICAID, SELFPAY ==
[2023-08-15 14:49] VITALS: BP 121/85; PULSE 87; RESP 16; TEMP 36.6; O2SAT 99; BMI 28.3
[2023-08-15 15:30] LABS: Add Manual Diff / Slide Review NO; Basophils Absolute Auto 100 /uL (0-100); Basophils Percent Auto 0.7 % (0-2); Eosinophils Absolute Auto 200 /uL (0-450); Eosinophils Percent Auto 2.9 % (2-4); Hematocrit 42.4 % (36-46); Hemoglobin 14.2 g/dL (12.0-16.0); Lymphocytes Absolute Auto 2700 /uL (1100-4500); Lymphocytes Percent Auto 37.5 % (25-40); Mean Corpuscular HGB Conc 33.5 % (30-36); Mean Corpuscular Hemoglobin 27.3 PG (26-34); Mean Corpuscular Volume 81.5 fL (80-100); Monocytes Absolute Auto 600 /uL (0-900); Monocytes Percent Auto 7.8 % (3-14); Neutrophils Absolute Auto 3700 /uL (1500-7000); Neutrophils Percent Auto 51.1 % (50-75); Platelet Count 268 X10^3/uL (150-400); Red Blood Cell Count 5.21 X10^6/uL (4.0-5.2); Red Cell Distribution Width 16.3 % (11.6-14.8); White Blood Cell Count 7.3 X10^3/uL (4.5-11.0)
--- NOTE | 2023-08-15 15:37 | PC.NURSE ---
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 Baby sleeps well at night. Pt has allowed blood work, declined to give urine and declined an IV.
[2023-08-15 15:41] LABS: Alanine Aminotransferase 15 IU/L (<35); Albumin 4.9 g/dL (3.5-5.0); Albumin Globulin Ratio 1.4 (1.0-2.8); Alkaline Phosphatase 60 U/L (38-126); Aspartate Aminotransferase 19 IU/L (14-36); BUN Creatinine Ratio 27.4 (6-22); Bilirubin Total 0.4 mg/dL (0.2-1.3); Blood Urea Nitrogen 17 mg/dL (7-17); Carbon Dioxide 24 mmol/L (22-32); Chloride 105 mmol/L (98-107); Estimated Glomerular Filt Rate > 60 mL/min (>60); Globulin 3.4 g/dL (1.7-4.1); Glucose 96 mg/dL (70-100); HEMOLYSIS 22 (0-50); Potassium 4.1 mmol/L (3.4-5.1); Sodium 139 mmol/L (137-145); Total Protein 8.3 g/dL (6.3-8.2)
--- NOTE | 2023-08-15 18:20 | ED.GENADULT ---
HPI - General Adult General Chief complaint: Dizziness Stated complaint: Feeling dizzy, vision blanking, tired Time Seen by Provider: 08/15/23 17:59 Source: patient Mode of arrival: Ambulatory History of Present Illness HPI narrative: Patient is a 18-year-old female. She states that this morning she woke up. When she was looking in the mirror she stated that she felt very lightheaded and dizzy. She sat down in her symptoms seemed to improved and then when she bent over and stood back up again the symptoms return. They have now completely resolved. At the time she was not having chest pain or headache. No palpitations. She states that she also has a known pituitary tumor. Patient states that she does not know any specific diagnosis of this. States she went to see an wildlife technician and got ?no information? she did have a MRI when she was which showed that the tumor was smaller. She does not have a primary care doctor. She denies any headaches. No vision problems. No lateralizing neurologic symptoms. Related Data Previous Rx's Medication Instructions Recorded docusate sodium 100 mg capsule 100 mg PO DAILY #20 caps 03/23/23 (Colace) ibuprofen 600 mg tablet 600 mg PO QID PRN cramping #30 tabs 03/23/23 oxycodone 5 mg tablet 5 mg PO Q4H PRN pain #20 tabs 03/23/23 Allergies Allergy/AdvReac Type Severity Reaction Status Date / Time No Known Drug Allergies Allergy Verified 01/29/23 18:13 Review of Systems Review of Systems ROS Unobtainable: All systems reviewed & are unremarkable except as noted in HPI and below Patient History Medical History HSV (herpes simplex virus) anogenital infection Pituitary adenoma Social History marital status: unmarried,single household members: family lives independently: Yes housing: house education level: high school Smoking Status: Never smoker Smoking Status: Never smoker Substance Use Type: does not use Exam Initial Vital Signs Initial Vital Signs: Vital Signs Temperature 97.9 F 08/15/23 14:49 Pulse Rate 87 08/15/23 14:49 Respiratory Rate 16 08/15/23 14:49 Blood Pressure 121/85 08/15/23 14:49 Pulse Oximetry 99 08/15/23 14:49 Oxygen Delivery Method Room Air 08/15/23 14:49 Const General: cooperative, comfortable and No ill appearing HENMT Head: normal to inspection and normocephalic Resp Effort & Inspection: normal respiratory effort Auscultation: clear to auscultation bilaterally Cardio Rate: regular rate Rhythm: regular rhythm GI Inspection: normal to inspection and non-distended Palpation: soft and No tender Skin General: no rashes or lesions noted Neuro General: patient alert, patient awake, patient oriented x3 and moves all extremities Cranial Nerves: CN's II-XI intact bilaterally Cognition: normal cognition Speech: speech normal Gait: normal gait Motor: muscle tone normal throughout Sensory Exam: no sensory deficits noted Extrem General: normal to inspection and capillary refill normal Course Orders Ordered: ED Orders 08/15/23 18:20 Consult to [facility] - Food And Beverage Attendant Stat Vital Signs Vital signs: Vital Signs - 8 hr 08/15/23 14:49 Temperature 97.9 F Pulse Rate 87 Respiratory Rate 16 Blood Pressure 121/85 Pulse Oximetry 99 Oxygen Delivery Method Room Air Medical Decision Making Lab Data Lab results reviewed: Yes I reviewed the patient's lab results. 08/15/23 15:20 08/15/23 15:20 Labs: Lab Results 08/15/23 Range/Units 15:20 WBC 7.3 (4.5-11.0) X10^3/uL RBC 5.21 H (4.0-5.2) X10^6/uL Hgb 14.2 (12.0-16.0) g/dL Hct 42.4 (36-46) % MCV 81.5 (80-100) fL MCH 27.3 (26-34) PG MCHC 33.5 (30-36) % RDW 16.3 H (11.6-14.8) % Plt Count 268 (150-400) X10^3/uL Neut % (Auto) 51.1 (50-75) % Lymph % (Auto) 37.5 (25-40) % [place] % (Auto) 7.8 (3-14) % Eos % (Auto) 2.9 (2-4) % Baso % (Auto) 0.7 (0-2) % Neut # (Auto) 3700 (7388-1598) /uL Lymph # (Auto) 2700 (7414-7190) /uL [place] # (Auto) 600 (0-900) /uL Eos # (Auto) 200 (0-450) /uL Baso # (Auto) 100 (0-100) /uL Sodium 139 (137-145) mmol/L Potassium 4.1 (3.4-5.1) mmol/L Chloride 105 (98-107) mmol/L Carbon Dioxide 24 (22-32) mmol/L BUN 17 (7-17) mg/dL Creatinine 0.62 (0.52-1.04) mg/dL Estimated GFR > 60 (>60) mL/min BUN/Creatinine Ratio 27.4 H (6-22) Glucose 96 (70-100) mg/dL Calcium 10.0 (8.4-10.2) mg/dL Total Bilirubin 0.4 (0.2-1.3) mg/dL AST 19 (14-36) IU/L ALT 15 (<35) IU/L Alkaline Phosphatase 60 (38-126) U/L Total Protein 8.3 H (6.3-8.2) g/dL Albumin 4.9 (3.5-5.0) g/dL Globulin 3.4 (1.7-4.1) g/dL Albumin/Globulin Ratio 1.4 (1.0-2.8) MDM Narrative Medical decision making narrative: Patient is currently asymptomatic. The symptoms that brought her in the emergency department today where this morning and they are now completely resolved. She also has quite a few other vague symptoms to include fatigue and problems sleeping at night. This is most likely related to fatigue of taking care of her 5-month-old child. She states that the child's father is not in the picture. She does live with her mother however she states that her mother provides little support and helping her. Patient does not have a primary care doctor. Given the fact that she now is completely asymptomatic there was no indication for emergent evaluation of this pituitary ?tumor? I advised the patient that if in fact she does have a tumor on her pituitary that she needs to make contact with the primary care doctor as this absolutely needs follow-up and further evaluation. She was given a card with information on it so that she can make contact with the primary doctor. Will discharge patient return precautions. Discharge Plan Departure Patient Disposition: Home Clinical Impression: Dizziness Instructions: DI for Dizziness-Nonvertigo Activity Restrictions/Additional Instructions: Recommend you continue to take all your medications as directed. Use the card that you were given here in the emergency department to make contact with the primary doctor as you should have further evaluation of the pituitary abnormality that you brought up here in the ER. Return to the emergency department for new symptoms. Prescriptions: No Action oxycodone 5 mg tablet 5 mg PO Q4H PRN (Reason: pain) Qty: 20 0RF ibuprofen 600 mg tablet 600 mg PO QID PRN (Reason: cramping) Qty: 30 0RF docusate sodium [Colace] 100 mg capsule 100 mg PO DAILY Qty: 20 0RF Referrals: Shiv Baldwin DO [Primary Care Provider] - Stand Alone Forms: Patient Portal/API
== END 2023-08-15 18:28 | disposition home or self-care (01) ==
PROVIDERS: Emergency Medicine; Emergency Provider Emergency Medicine; PCP Family Medicine
DX: R42 Dizziness and giddiness (principal)
CPT/HCPCS: 80053; 85025; 99281; 99283

== ENCOUNTER 2023-09-19 21:59 | Emergency (ER) | payer OTHER, MEDICAID, SELFPAY ==
[2023-09-19 22:10] VITALS: BP 119/86; PULSE 70; RESP 17; TEMP 37; O2SAT 96; BMI 27.4
--- NOTE | 2023-09-19 22:21 | ED.HA ---
HPI - Headache General Chief Complaint: Headache Stated Complaint: migraine T-0/ HX of brain tumor/ nausea Time Seen by Provider: 09/19/23 22:12 Mode of arrival: Ambulatory History of Present Illness HPI Narrative: Patient is a 18-year-old female with history of headaches and pituitary tumor presenting today with 2 days of a worsening headache. She reports that when she was her headaches went away however she started having headaches again. Mild nausea, no vomiting sensitive to light. No numbness tingling or weakness. No fevers. Related Data Previous Rx's Medication Instructions Recorded docusate sodium 100 mg capsule 100 mg PO DAILY #20 caps 03/23/23 (Colace) ibuprofen 600 mg tablet 600 mg PO QID PRN cramping #30 tabs 03/23/23 oxycodone 5 mg tablet 5 mg PO Q4H PRN pain #20 tabs 03/23/23 Allergies Allergy/AdvReac Type Severity Reaction Status Date / Time No Known Drug Allergies Allergy Verified 09/19/23 22:14 Review of Systems Review of Systems ROS Unobtainable: All systems reviewed & are unremarkable except as noted in HPI and below Patient History Medical History HSV (herpes simplex virus) anogenital infection Pituitary adenoma Social History marital status: unmarried,single household members: family lives independently: Yes housing: house education level: high school Smoking Status: Never smoker Smoking Status: Never smoker alcohol intake frequency: other Substance Use Type: does not use Exam Initial Vital Signs Initial Vital Signs: Vital Signs Temperature 98.6 F 09/19/23 22:10 Pulse Rate 70 09/19/23 22:10 Respiratory Rate 17 09/19/23 22:10 Blood Pressure 119/86 09/19/23 22:10 Pulse Oximetry 96 09/19/23 22:10 Oxygen Delivery Method Room Air 09/19/23 22:10 GENERAL: Alert 18-year-old female in dark room, espino over eyes appears uncomfortable HEENT: Head atraumatic,EOMI, pupils reactive, face symmetric, moist mucous membranes CARDIOVASCULAR: Regular rate and rhythm without murmurs, rubs or gallops. RESPIRATORY: Breath sounds equal bilaterally, no wheezes rales or rhonchi. ABDOMEN: Soft, nontender. Normoactive bowel sounds all 4 quadrants. No guarding or rebound. EXTREMITIES: Normal range of motion, no clubbing or edema. Neurovascularly intact NEUROLOGICAL: Alert and oriented x4.Normal gait and speech. Cranial nerves II through XII grossly intact. SKIN: Warm, dry, no laceration, no petechiae, no rashes or lesions. Course Orders Ordered: ED Orders 09/19/23 22:26 CT head/brain wo con Stat Discontinued Medications Ketorolac Tromethamine (Ketorolac 30 Mg/Ml Vial) 15 mg IV NOW ONE Stop: 09/19/23 22:27 Last Admin: 09/19/23 22:37 Dose: 15 mg Documented By: SB Vital Signs Vital signs: Vital Signs - 8 hr 09/19/23 22:10 09/20/23 00:01 Temperature 98.6 F 98.3 F Pulse Rate 70 70 Respiratory Rate 17 16 Blood Pressure 119/86 116/72 Pulse Oximetry 96 99 Oxygen Delivery Method Room Air Room Air MDM - Headache Imaging Data CT scan - head: Radiologist's Impression: PROCEDURE: CT HEAD/BRAIN WO CON INDICATIONS: known pituitary tumor, meraz TECHNIQUE: Noncontrast 4.5 mm thick angled axial sections acquired from the foramen magnum to the vertex, with coronal and sagittal reformats. For radiation dose reduction, the following was used: automated exposure control, adjustment of mA and/or kV according to patient size. COMPARISON: Outside Facility, RG, MRI BRAIN W/WO CONTRAST, 09/25/2018, 17:57. FINDINGS: Image quality: Excellent. CSF spaces: Basal cisterns are patent. No extra-axial fluid collections. Ventricles are normal in size and shape. Brain: No midline shift. No significant intracranial masses, or hemorrhage. At the pituitary fossa of the pituitary gland appears slightly enlarged greater on the left than the right Godfrey-white matter interface is normal. Skull and face: Calvarium and visualized facial bones are intact, without suspicious lesions. Sinuses: Visualized sinuses and mastoids are clear. IMPRESSION: Minimal abnormal enlargement of the left pituitary gland, no source of headache is identified. No suspicion for presence of intracranial hemorrhage. Dictated by: Benny Gama M.D. on 09/19/2023 at 23:16 MDM Narrative Medical decision making narrative: 18-year-old female history of pituitary tumor presents today with headache. She improved with Toradol. CT head does not show any significant mass but does show an abnormality that is not miserable on left pituitary. At this time she is feeling better recommended following up with PCP possibly getting repeat MRI. However I do not think that the pituitary tumor is causing her headache today. Does seem to be hormonal, she had headaches before headaches resolved with and now they have returned. She is no focal deficits. No concern for infection Discharge Plan Departure Patient Disposition: Home Clinical Impression: Headache Instructions: DI for Headache Activity Restrictions/Additional Instructions: *You have been diagnosed with headache *What to do: At this time CT is shows pituitary abnormality but not very large. May require repeat MRI. Please see your primary care provider. *Continue to take medications as directed Tylenol Motrin as needed for pain *Follow up with your primary care provider in 2-3 days or call [phone] *Return to ER if you should have worsening headache persistent vomiting weakness numbness tingling or any new, worsening or concerning symptoms Prescriptions: No Action oxycodone 5 mg tablet 5 mg PO Q4H PRN (Reason: pain) Qty: 20 0RF ibuprofen 600 mg tablet 600 mg PO QID PRN (Reason: cramping) Qty: 30 0RF docusate sodium [Colace] 100 mg capsule 100 mg PO DAILY Qty: 20 0RF Referrals: Shiv Baldwin DO [Primary Care Provider] - Stand Alone Forms: Patient Portal/API
--- NOTE | 2023-09-19 22:26 | DI.CT.S_ITS ---
PROCEDURE: CT HEAD/BRAIN WO CON INDICATIONS: known pituitary tumor, meraz TECHNIQUE: Noncontrast 4.5 mm thick angled axial sections acquired from the foramen magnum to the vertex, with coronal and sagittal reformats. For radiation dose reduction, the following was used: automated exposure control, adjustment of mA and/or kV according to patient size. COMPARISON: Outside Facility, RG, MRI BRAIN W/WO CONTRAST, 09/25/2018, 17:57. FINDINGS: Image quality: Excellent. CSF spaces: Basal cisterns are patent. No extra-axial fluid collections. Ventricles are normal in size and shape. Brain: No midline shift. No significant intracranial masses, or hemorrhage. At the pituitary fossa of the pituitary gland appears slightly enlarged greater on the left than the right Godfrey-white matter interface is normal. Skull and face: Calvarium and visualized facial bones are intact, without suspicious lesions. Sinuses: Visualized sinuses and mastoids are clear. IMPRESSION: Minimal abnormal enlargement of the left pituitary gland, no source of headache is identified. No suspicion for presence of intracranial hemorrhage. Dictated by: Benny Gama M.D. on 09/19/2023 at 23:16 Approved by: Benny Gama M.D. on 09/19/2023 at 23:19
[2023-09-19] MEDS: KETOROLAC 30 MG/ML VIAL 15 MG IV (22:37)
[2023-09-20 00:01] VITALS: BP 116/72; PULSE 70; RESP 16; TEMP 36.8; O2SAT 99
== END 2023-09-20 00:03 | disposition home or self-care (01) ==
PROVIDERS: Emergency Provider Emergency Medicine; PCP Family Medicine
DX: R51.9 Headache, unspecified (principal)
CPT/HCPCS: 70450; 96374; 99283; 99284; J1885

== ENCOUNTER 2024-10-30 12:49 | Emergency (ER) | payer OTHER, SELFPAY ==
[2024-10-30 13:20] VITALS: BP 128/75; PULSE 89; RESP 16; TEMP 36.9; O2SAT 98; BMI 26.6
--- NOTE | 2024-10-30 14:54 | ED_ITS ---
HPI - Headache <YULISSA Pozo Last Filed: 10/30/24 16:12> General Chief Complaint: Headache Stated Complaint: headache t-1, throwing up Time Seen by Provider: 10/30/24 14:25 Mode of arrival: Family Vehicle History of Present Illness HPI Narrative: Milagro is a pleasant 19-year-old female with a past medical history of pituitary tumor not currently following with PCP or Endocrinology presents to the emergency department for headache since last night. She is with her mom who contributes to the history. Patient reports she gets headaches over twice a month. States that last night she developed 1 of her regular headaches which she describes as pressure on the top of her head. States this headache was an 8 and is now around a 5 however it is not going away despite taking Tylenol and ibuprofen yesterday. States that this headache is different than normal because she has had about 5 episodes total of nausea and vomiting, twice last night and 3 this morning. She feels dehydrated. Denies fevers, chills, flu symptoms, cough, shortness of breath, sore throat. No abdominal pain or diarrhea. She has taken no medications today. Of note, her mom states that yesterday the patient started her menstrual period and she finds that her symptoms get worse every month with her menstrual cycle. She currently is , 19 months . Related Data Previous Rx's Medication Instructions Recorded docusate sodium 100 mg capsule 100 mg PO DAILY #20 caps 03/23/23 (Colace) ibuprofen 600 mg tablet 600 mg PO QID PRN cramping #30 tabs 03/23/23 oxycodone 5 mg tablet 5 mg PO Q4H PRN pain #20 tabs 03/23/23 naproxen 500 mg tablet 500 mg PO BID PRN pain #14 tabs 10/30/24 ondansetron 4 mg disintegrating 4 mg PO Q8H PRN nausea and 10/30/24 tablet vomiting #14 tabs Allergies Allergy/AdvReac Type Severity Reaction Status Date / Time No Known Drug Allergies Allergy Verified 09/19/23 22:14 Review of Systems <Cathleen Mahoney PA-C - Last Filed: 10/30/24 16:12> Review of Systems ROS Unobtainable: All systems reviewed & are unremarkable except as noted in HPI and below Patient History <YULISSA Pozo Last Filed: 10/30/24 16:12> Medical History HSV (herpes simplex virus) anogenital infection Pituitary adenoma Social History marital status: unmarried,single household members: family lives independently: Yes housing: house education level: high school Smoking Status: Never smoker Smoking Status: Never smoker alcohol intake frequency: other Exam <Cathleen Mahoney PA-C - Last Filed: 10/30/24 16:12> Narrative Exam Narrative: GENERAL: 19 year old patient appears stated age. Well-developed patient, in no acute distress. HEAD: Atraumatic. Normocephalic. EYES: PERRL. Extraocular motions intact. No scleral icterus. No injection or drainage. ENT: Nose without bleeding, purulent drainage. Throat without erythema, tonsillar hypertrophy or exudate. Airway patent. NECK: Trachea midline. Cervical ROM intact. CARDIOVASCULAR: Regular rate and rhythm. RESPIRATORY: ?Nonlabored respirations. ?Speaking in clear, full sentences. ?Clear to auscultation. GASTROINTESTINAL: Abdomen soft, non-tender, nondistended. Normal bowel sounds. EXTREMITIES: No edema or joint tenderness. NEURO: AOx3. ?Clear speech. ?Moves all 4 extremities appropriately. Sensation intact to light touch throughout all extremities. No facial asymmetry. Sensation intact to light touch bilateral face. Normal [id number], rapid alternating movements, heel-qiu. Gross hearing intact bilaterally. Equal strength throughout. SKIN: No rash or erythema of visible areas Initial Vital Signs Initial Vital Signs: Vital Signs Temperature 98.5 F 10/30/24 13:20 Pulse Rate 89 10/30/24 13:20 Respiratory Rate 16 10/30/24 13:20 Blood Pressure 128/75 10/30/24 13:20 Pulse Oximetry 98 10/30/24 13:20 Oxygen Delivery Method Room Air 10/30/24 13:20 <Katherine Marinelli MD - Last Filed: 11/01/24 07:31> Initial Vital Signs Initial Vital Signs: Vital Signs Temperature 98.5 F 10/30/24 13:20 Pulse Rate 89 10/30/24 13:20 Respiratory Rate 16 10/30/24 13:20 Blood Pressure 128/75 10/30/24 13:20 Pulse Oximetry 98 10/30/24 13:20 Oxygen Delivery Method Room Air 10/30/24 13:20 Course <Cathleen Mahoney PA-C - Last Filed: 10/30/24 16:12> Orders Ordered: Discontinued Medications Diphenhydramine HCl (Diphenhydramine 50 Mg/Ml Vial) 25 mg IV NOW ONE Stop: 10/30/24 14:54 Last Admin: 10/30/24 15:06 Dose: 25 mg Documented By: SPF Sodium Chloride (Normal Saline 0.9%) 1,000 mls @ 1,000 mls/hr IV BOLUS ONE Stop: 10/30/24 15:52 Last Infusion: 10/30/24 16:33 Dose: Infused Documented By: Admin: 10/30/24 15:09 Dose: 1,000 mls/hr Documented By: SPF Metoclopramide HCl (Metoclopramide 10 Mg/2 Ml Inj) 10 mg IV NOW ONE Stop: 10/30/24 14:54 Last Admin: 10/30/24 15:07 Dose: 10 mg Documented By: SPF Vital Signs Vital signs: Vital Signs - 8 hr 10/30/24 13:20 Temperature 98.5 F Pulse Rate 89 Respiratory Rate 16 Blood Pressure 128/75 Pulse Oximetry 98 Oxygen Delivery Method Room Air <Katherine Marinelli MD - Last Filed: 11/01/24 07:31> Orders Ordered: Discontinued Medications Diphenhydramine HCl (Diphenhydramine 50 Mg/Ml Vial) 25 mg IV NOW ONE Stop: 10/30/24 14:54 Last Admin: 10/30/24 15:06 Dose: 25 mg Documented By: SPF Sodium Chloride (Normal Saline 0.9%) 1,000 mls @ 1,000 mls/hr IV BOLUS ONE Stop: 10/30/24 15:52 Last Infusion: 10/30/24 16:33 Dose: Infused Documented By: Admin: 10/30/24 15:09 Dose: 1,000 mls/hr Documented By: SPF Metoclopramide HCl (Metoclopramide 10 Mg/2 Ml Inj) 10 mg IV NOW ONE Stop: 10/30/24 14:54 Last Admin: 10/30/24 15:07 Dose: 10 mg Documented By: SPF Vital Signs Vital signs: Vital Signs - 8 hr 10/30/24 13:20 Temperature 98.5 F Pulse Rate 89 Respiratory Rate 16 Blood Pressure 128/75 Pulse Oximetry 98 Oxygen Delivery Method Room Air MDM - Headache <Cathleen Mahoney PA-C - Last Filed: 10/30/24 16:12> Medical Records Attestation: I reviewed the patient's medical records. Lab Data 10/30/24 14:55 10/30/24 14:55 Labs: Lab Results 10/30/24 10/30/24 Range/Units 14:30 14:55 WBC 9.0 (4.5-11.0) X10^3/uL RBC 4.82 (4.0-5.2) X10^6/uL Hgb 13.8 (12.0-16.0) g/dL Hct 40.6 (36-46) % MCV 84.2 (80-100) fL MCH 28.5 (26-34) PG MCHC 33.9 (30-36) % RDW 14.0 (11.6-14.8) % Plt Count 308 (150-400) X10^3/uL Neut % (Auto) 74.4 (50-75) % Lymph % (Auto) 19.3 L (25-40) % Ramsey % (Auto) 5.3 (3-14) % Eos % (Auto) 0.6 L (2-4) % Baso % (Auto) 0.4 (0-2) % Neut # (Auto) 6700 (7242-3311) /uL Lymph # (Auto) 1700 (8280-8763) /uL Ramsey # (Auto) 500 (0-900) /uL Eos # (Auto) 100 (0-450) /uL Baso # (Auto) 0 (0-100) /uL Sodium 137 (137-145) mmol/L Potassium 4.0 (3.4-5.1) mmol/L Chloride 106 (98-107) mmol/L Carbon Dioxide 22 (22-32) mmol/L BUN 16 (7-17) mg/dL Creatinine 0.56 (0.52-1.04) mg/dL Estimated GFR > 60 (>60) mL/min BUN/Creatinine Ratio 28.6 H (6-22) Glucose 80 (70-100) mg/dL Calcium 9.6 (8.4-10.2) mg/dL Total Bilirubin 0.7 (0.2-1.3) mg/dL AST 33 (14-36) IU/L ALT 27 (<35) IU/L Alkaline Phosphatase 64 (38-126) U/L Total Protein 8.1 (6.3-8.2) g/dL Albumin 4.9 (3.5-5.0) g/dL Globulin 3.2 (1.7-4.1) g/dL Albumin/Globulin Ratio 1.5 (1.0-2.8) Urine RBC >100/hpf H (0-5/HPF) Urine WBC 1-5/hpf (0-5/HPF) Ur Squamous Epith Cells None seen (0-5/HPF) Urine Bacteria Many (>30) H (None) Ur Culture Indicated? Specimen cultured Vol Urine Centrifuged 10ml (spun) Point of Care Testing Test Results Negative Urine Dip Bedside Urine Glucose Negative Bedside Urine Bilirubin - Negative Bedside Urine Ketone +++ 80 Urine Specific [place] 1.030 Bedside Urine Occult Blood +++ Bedside Urine pH 5.5 Bedside Urine Protein ++ 100 Bedside Urine Urobilinogen +/- 1mg Bedside Urine Nitrite + Positive Bedside Urine Leukocytes ++ [address] scan - head: Radiologist's Impression: PROCEDURE: CT HEAD/BRAIN WO CON INDICATIONS: known pituitary tumor; headache TECHNIQUE: Noncontrast 4.5 mm thick angled axial sections acquired from the foramen magnum to the vertex, with coronal and sagittal reformats. For radiation dose reduction, the following was used: automated exposure control, adjustment of mA and/or kV according to patient size. COMPARISON: [facility], MR, MR PITUITARY WITH/WITHOUT CONTRAST, 01/10/2024, 14:32. [facility], CT, CT HEAD/BRAIN WO CON, 09/19/2023, 22:43. FINDINGS: Image quality: Diagnostic. CSF spaces: Basal cisterns are patent. No extra-axial fluid collections. Ventricles are normal in size and shape. Brain: No midline shift. No intracranial masses or hemorrhage. Godfrey-white matter interface is normal. This patient has a known left-sided pituitary lesion, which is only faintly seen on this CT study, as on series 4, image 20. No acute regional hemorrhage can be seen. Skull and face: Calvarium and visualized facial bones are intact, without suspicious lesions. Sinuses: Visualized sinuses and mastoids are clear. IMPRESSION: Stable examination, without acute hemorrhage or other significant acute abnormality. There is faint visualization of the known left-sided pituitary lesion. MDM Narrative Medical decision making narrative: 19-year-old female with a past medical history of pituitary tumor not currently following with PCP or Endocrinology presents to the emergency department for headache since last night. Her mom provides majority of history. Differential diagnosis includes but is not limited to migraine headache, tension headache, premenstrual dysphoric syndrome, dehydration, electrolyte abnormality, intracranial mass, etc. On exam patient is in no acute distress, nontoxic appearing, vital signs within normal limits and no focal neurologic deficits. Patient and mom concerned symptoms are related to pituitary tumor, patient has not been able to follow up with primary care or endocrinology here in [place], she did have a pediatric back tender paper machine in [place]. Plan to obtain CT head to rule out intracranial abnormality, we will treat with migraine cocktail consisting of Reglan, IV fluids, Benadryl. test negative. We will check baseline CBC and CMP because of vomiting. Patient's symptoms resolved with ED treatment. Head CT stable, without acute hemorrhage or other significant abnormality. There is faint visualization of the known left-sided pituitary lesion. Lab work overall reassuring with normal WBC count 9.0, hemoglobin 13.8, hematocrit 40.6, neutrophils 74.4%. Normal potassium 4.0 sodium 137, BUN 16, creatinine 0.56. UA with RBCs and bacteria, patient is currently on menstrual cycle and suspect contamination as she has not having any lower abdominal pain or dysuria. Specimen cultured. Overall patient and mom reassured by workup. We discussed the importance of following up with the PCP and potentially Endocrinology and Neurology as well. She was provided with information to schedule an appointment with [facility] primary care. She was prescribed naproxen and Zofran if needed for breakthrough headaches. Discussed ER return precautions. Patient verbalized understanding of all information and is stable for discharge home. <Katherine Marinelli MD - Last Filed: 11/01/24 07:31> Lab Data Labs: Lab Results 10/30/24 10/30/24 Range/Units 14:30 14:55 WBC 9.0 (4.5-11.0) X10^3/uL RBC 4.82 (4.0-5.2) X10^6/uL Hgb 13.8 (12.0-16.0) g/dL Hct 40.6 (36-46) % MCV 84.2 (80-100) fL MCH 28.5 (26-34) PG MCHC 33.9 (30-36) % RDW 14.0 (11.6-14.8) % Plt Count 308 (150-400) X10^3/uL Neut % (Auto) 74.4 (50-75) % Lymph % (Auto) 19.3 L (25-40) % Ramsey % (Auto) 5.3 (3-14) % Eos % (Auto) 0.6 L (2-4) % Baso % (Auto) 0.4 (0-2) % Neut # (Auto) 6700 (8086-2541) /uL Lymph # (Auto) 1700 (9580-4902) /uL Ramsey # (Auto) 500 (0-900) /uL Eos # (Auto) 100 (0-450) /uL Baso # (Auto) 0 (0-100) /uL Sodium 137 (137-145) mmol/L Potassium 4.0 (3.4-5.1) mmol/L Chloride 106 (98-107) mmol/L Carbon Dioxide 22 (22-32) mmol/L BUN 16 (7-17) mg/dL Creatinine 0.56 (0.52-1.04) mg/dL Estimated GFR > 60 (>60) mL/min BUN/Creatinine Ratio 28.6 H (6-22) Glucose 80 (70-100) mg/dL Calcium 9.6 (8.4-10.2) mg/dL Total Bilirubin 0.7 (0.2-1.3) mg/dL AST 33 (14-36) IU/L ALT 27 (<35) IU/L Alkaline Phosphatase 64 (38-126) U/L Total Protein 8.1 (6.3-8.2) g/dL Albumin 4.9 (3.5-5.0) g/dL Globulin 3.2 (1.7-4.1) g/dL Albumin/Globulin Ratio 1.5 (1.0-2.8) Urine RBC >100/hpf H (0-5/HPF) Urine WBC 1-5/hpf (0-5/HPF) Ur Squamous Epith Cells None seen (0-5/HPF) Urine Bacteria Many (>30) H (None) Ur Culture Indicated? Specimen cultured Vol Urine Centrifuged 10ml (spun) Point of Care Testing Test Results Negative Urine Dip Bedside Urine Glucose Negative Bedside Urine Bilirubin - Negative Bedside Urine Ketone +++ 80 Urine Specific [place] 1.030 Bedside Urine Occult Blood +++ Bedside Urine pH 5.5 Bedside Urine Protein ++ 100 Bedside Urine Urobilinogen +/- 1mg Bedside Urine Nitrite + Positive Bedside Urine Leukocytes ++ 125 Esterase Discharge Plan Departure Patient Disposition: Home Clinical Impression: History of pituitary tumor Acute nonintractable headache Qualifiers: Headache type: unspecified Qualified Code(s): R51.9 - Headache, unspecified Instructions: DI for Migraine Activity Restrictions/Additional Instructions: Today you were evaluated for headache, nausea, vomiting. Your lab work was reassuring. Your head CT scan did not show any new abnormalities, there was a faint visualization of the known left-sided pituitary lesion. It is extremely important that you follow up with the primary care doctor for further evaluation. A primary care doctor can also refer you to endocrinology or Neurology as needed. I have prescribed you naproxen which is anti-inflammatory pain medicine if needed for headaches and Zofran if needed for nausea/vomiting. You may also take Tylenol these medications. Do not take ibuprofen and naproxen together as they are similar. Please follow up with your primary care doctor within the next 2-3 days for ER follow-up. (If you do not have a PCP you can call [phone]. ?to schedule an appointment with an [facility] Primary Care Provider) IF YOU DEVELOP ANY NEW OR WORSENING SYMPTOMS, RETURN TO THE ER! Please read the attached instructions, they highlight more specific treatments and interventions for you at home. Thank you for letting me participate in your care, Cathleen Mahoney PA-C Prescriptions: New naproxen 500 mg tablet 500 mg PO BID PRN (Reason: pain) Qty: 14 0RF Rx Instructions: Take with food. ondansetron 4 mg tablet,disintegrating 4 mg PO Q8H PRN (Reason: nausea and vomiting) Qty: 14 0RF No Action oxycodone 5 mg tablet 5 mg PO Q4H PRN (Reason: pain) Qty: 20 0RF ibuprofen 600 mg tablet 600 mg PO QID PRN (Reason: cramping) Qty: 30 0RF docusate sodium [Colace] 100 mg capsule 100 mg PO DAILY Qty: 20 0RF Stand Alone Forms: Patient Portal/API/Survey ED Sign-out <Katherine Marinelli MD - Last Filed: 11/01/24 07:31> Cosign ED Attending Cosileneature Attestation: I was immediately available in the department for consultation throughout this patient's visit. Katherine Marinelli MD
[2024-10-30] MEDS: diphenhydrAMINE 50 MG/ML VIAL 25 MG IV (15:06)
[2024-10-30] MEDS: METOCLOPRAMIDE 10 MG/2 ML INJ IV (15:07)
[2024-10-30] MEDS: SODIUM CHLORIDE 0.9% 1,000 ML 1000 ML IV (15:09)
[2024-10-30 15:26] LABS: Bacteria Urine Many (>30); RBC Urine >100/HPF (0-5/HPF); Squamous Epithelial Cell Urine None Seen (0-5/HPF); Urine Volume 10mL (spun); WBC Urine 1-5/HPF (0-5/HPF)
[2024-10-30 15:26] LABS: Alanine Aminotransferase 27 IU/L (<35); Albumin 4.9 g/dL (3.5-5.0); Albumin Globulin Ratio 1.5 (1.0-2.8); Alkaline Phosphatase 64 U/L (38-126); Aspartate Aminotransferase 33 IU/L (14-36); BUN Creatinine Ratio 28.6 (6-22); Bilirubin Total 0.7 mg/dL (0.2-1.3); Blood Urea Nitrogen 16 mg/dL (7-17); Calcium 9.6 mg/dL (8.4-10.2); Carbon Dioxide 22 mmol/L (22-32); Chloride 106 mmol/L (98-107); Estimated Glomerular Filt Rate > 60 mL/min (>60); Globulin 3.2 g/dL (1.7-4.1); Glucose 80 mg/dL (70-100); HEMOLYSIS < 15 (0-50); Sodium 137 mmol/L (137-145); Total Protein 8.1 g/dL (6.3-8.2)
[2024-10-30 15:27] LABS: Culture Indicated Urine Specimen Cultured
[2024-10-30 15:30] LABS: Add Manual Diff / Slide Review NO; Basophils Absolute Auto 0 /uL (0-100); Basophils Percent Auto 0.4 % (0-2); Eosinophils Absolute Auto 100 /uL (0-450); Eosinophils Percent Auto 0.6 % (2-4); Hematocrit 40.6 % (36-46); Hemoglobin 13.8 g/dL (12.0-16.0); Lymphocytes Absolute Auto 1700 /uL (1100-4500); Lymphocytes Percent Auto 19.3 % (25-40); Mean Corpuscular HGB Conc 33.9 % (30-36); Mean Corpuscular Hemoglobin 28.5 PG (26-34); Mean Corpuscular Volume 84.2 fL (80-100); Monocytes Absolute Auto 500 /uL (0-900); Monocytes Percent Auto 5.3 % (3-14); Neutrophils Absolute Auto 6700 /uL (1500-7000); Neutrophils Percent Auto 74.4 % (50-75); Platelet Count 308 X10^3/uL (150-400); Red Blood Cell Count 4.82 X10^6/uL (4.0-5.2)
--- NOTE | 2024-10-30 15:30 | PC.NURSE ---
Pt and her mother requested info regarding if it is okay to breastfeed after receiving medications ordered. I checked [employer] and printed out information regarding IV reglan and benadryl for and provided to pt. Talked with Denzel BRADSHAW who agrees ok to proceed with medications.
[2024-10-30 16:33] VITALS: BP 113/61; PULSE 90; RESP 14; O2SAT 99
[2024-10-30 16:42] VITALS: BP 113/61; PULSE 90; RESP 16; O2SAT 99
== END 2024-10-30 16:43 | disposition home or self-care (01) ==
PROVIDERS: Emergency Provider Physician Assistant
DX: R51.9 Headache, unspecified (principal); R11.2 Nausea with vomiting, unspecified; Z87.898 Personal history of other specified conditions
CPT/HCPCS: 36415; 70450; 80053; 81003; 81015; 81025; 85025; 87086; 96361; 96374; 96375; 99284; J1200; J2765